=== PATIENT | female | born 1965 | race Caucasian/White ===

== ENCOUNTER 2020-05-22 16:12 | Emergency (ER) | payer BC, OTHER ==
[~2020-05-22] VITALS: Ht 172.7 cm; Wt 69.2 kg
[2020-05-22] MEDS ORDERED: ASPI81TA26 PO (16:45)
[2020-05-22] MEDS ORDERED: PRIL20TA2 PO (16:45)
[2020-05-22] MEDS ORDERED: [UNRECOGNIZED DRUG - CODE] PO (16:45)
[2020-05-22] MEDS ORDERED: LISI2.5T2 PO (16:45)
[2020-05-22] MEDS ORDERED: ROCA0.25 PO (16:45)
[2020-05-22] MEDS ORDERED: SODI650T PO (16:45)
[2020-05-22] MEDS ORDERED: POMA4CAP PO (16:45)
[2020-05-22] MEDS ORDERED: CITR1CHW PO (16:45)
[2020-05-22] MEDS ORDERED: VALA500T5 PO (16:45)
[2020-05-22] MEDS ORDERED: VELC3.5I (16:48)
[2020-05-22 17:34] LABS: HEMATOCRIT 26.8 % (36.0-47.0); HEMOGLOBIN 8.8 g/dl (12.0-15.5); MEAN CORPUSCULAR HEMOGLOBIN 35.1 pg (27.0-33.0); MEAN CORPUSCULAR HGB CONC 32.8 g/dl (32.0-36.5); MEAN CORPUSCULAR VOLUME 106.8 fl (80.0-96.0); PLATELET COUNT, AUTOMATED 109 10^3/uL (150-450); RED BLOOD COUNT 2.51 10^6/uL (4.00-5.40); WHITE BLOOD COUNT 1.2 10^3/uL (4.0-10.0)
[2020-05-22 17:56] LABS: ANISOCYTOSIS 1+; BASOPHILS 1 % (0-1); EOSINOPHILS 7 % (0-3); LYMPHOCYTES 42 % (16-44); MONOCYTES 16 % (0-5); NEUTROPHILS 34 % (28-66); PLATELET ESTIMATE DECREASED (NORMAL); POIKILOCYTOSIS 1+; POLYCHROMASIA 1+
[2020-05-22 17:57] LABS: ERYTHROCYTE SEDIMENTATION RATE 51 mm/hr (0-30)
[2020-05-22 18:02] LABS: ALBUMIN 3.3 GM/DL (3.2-5.2); ALT/SGPT 33 U/L (12-78); BILIRUBIN,DIRECT < 0.1 MG/DL (0.0-0.2); BILIRUBIN,TOTAL 0.2 MG/DL (0.2-1.0); BLOOD UREA NITROGEN 67 MG/DL (7-18); C REACTIVE PROTEIN QUANTITATIV 1.36 MG/DL (0.00-0.30); CALCIUM LEVEL 7.8 MG/DL (8.5-10.1); CARBON DIOXIDE LEVEL 22 MEQ/L (21-32); CHLORIDE LEVEL 111 MEQ/L (98-107); CK-MB VALUE MASS 7.6 NG/ML (<3.6); CPK CREATINE PHOSPHOKINASE 366 U/L (26-192); CREATININE FOR GFR 3.08 MG/DL (0.55-1.30); GLOMERULAR FILTRATION RATE 16.6 (>51); GLUCOSE, FASTING 81 MG/DL (70-100); LIPASE 104 U/L (73-393); MB/CK RELATIVE INDEX 2.08 (< OR =4); POTASSIUM SERUM 4.6 MEQ/L (3.5-5.1); SODIUM LEVEL 139 MEQ/L (136-145); TOTAL PROTEIN 6.3 GM/DL (6.4-8.2); TROPONIN I < 0.02 NG/ML (< 0.10)
--- NOTE | 2020-05-22 18:15 | REPVR ---
PROCEDURE INFORMATION: Exam: XR Chest, 1 View Exam date and time: 05/22/2020 6:07 PM Age: 55 years old Clinical indication: Shortness of breath; Additional info: [place] TECHNIQUE: Imaging protocol: XR of the chest Views: 1 view. COMPARISON: No relevant prior studies available. FINDINGS: Lungs: Unremarkable. No consolidation. Pleural space: Unremarkable. No pleural effusion. No pneumothorax. Heart/Mediastinum: Unremarkable. No cardiomegaly. Bones/joints: Unremarkable. IMPRESSION: No acute findings. Electronically signed by: Abdirahman Osorio On 05/22/2020 18:15:23 PM
[2020-05-22] MEDS ORDERED: PEGFILGRASTIM 6 MG/0.6ML SYR (NEULASTA) (J2505 PER 6MG) SC ONE (20:45)
[2020-05-22] MEDS ORDERED: FILGRASTIM 480 MCG/0.8 ML SYRINGE (J1442) SC ONE (21:15)
[2020-05-22] MEDS ORDERED: DARBEPOETIN 40 MCG/0.4 ML *NON-DIALYSIS* SYRINGE (J0881) SQ ONE (21:22)
[2020-05-22 21:31] VITALS: BP 125/75
--- NOTE | 2020-06-09 16:33 | ECGEPIP ---
[facility] - ED Test Date: 2020-05-22 Pat Name: Belkis Nuno Department: Room: 17 Gender: Female Cardiac Exercise Physiologist: nicole : 1965 Requested By: jennifer Order Number: [id number] Reading MD: Maria Guadalupe Head Measurements Intervals Mobile Rate: 45 P: 53 MI: 159 QRS: 24 QRSD: 88 T: 39 QT: 465 QTc: 402 Interpretive Statements SINUS BRADYCARDIA SEPTAL MYOCARDIAL INFARCTION, OF INDETERMINATE AGE ABNORMAL ECG SEE SCANNED DOWNTIME REPORT
== END 2020-05-22 22:28 | disposition home or self-care (01) ==
LOC: M ED 16:12
DX: D61.818 Other pancytopenia (principal); C90.00 Multiple myeloma not having achieved remission; D50.9 Iron deficiency anemia, unspecified; M10.9 Gout, unspecified; N19 Unspecified kidney failure; Z88.0 Allergy status to penicillin
CPT/HCPCS: 71045; 80048; 80076; 82550; 82553; 83605; 83690; 84484; 85025; 85652; 86140; 87040; 87086; 87486; 87581; 87633; 87798; 93005; 93041; 94760; 96372; 99285; J0881; J1442